=== PATIENT | male | born 1975 | race African-American/Black ===

== ENCOUNTER 2022-01-19 07:43 | Emergency (ER) | payer OTHER, SELFPAY ==
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
[2022-01-19 07:52] VITALS: BP 139/89; BP 156/84; PULSE 72; PULSE 88; RESP 16; TEMP 36.7; O2SAT 100; BMI 39.4
[2022-01-19 10:03] VITALS: BP 125/88; PULSE 58; RESP 16; TEMP 36.8; O2SAT 100
[2022-01-19] MEDS: Ketorolac Tromethamine 60 MG/2 ML VIAL IM (10:11)
[2022-01-19] MEDS: Lidocaine HCl 1 % MPF 2 ML VIAL 5 ML INFILTRATI (10:11)
== END 2022-01-19 10:17 | disposition home or self-care (01) ==
PROVIDERS: Emergency Provider Emergency Medicine
DX: S13.4XXA Sprain of ligaments of cervical spine, initial encounter (principal); S61.216A Laceration without foreign body of right little finger without damage to nail, initial encounter; V48.5XXA Car driver injured in noncollision transport accident in traffic accident, initial encounter; Y93.89 Activity, other specified; Y92.411 Interstate highway as the place of occurrence of the external cause; Y99.9 Unspecified external cause status
CPT/HCPCS: 12001; 96372; 99284; J1885